=== PATIENT | male | born 1950 | race Caucasian/White ===

== ENCOUNTER 2021-07-30 07:15 | Inpatient (IN) ==
[2021-07-29 15:34] LABS: Bilirubin,Urine Negative (Negative); Blood, Urine Negative (Negative); Glucose,Urine (UA) Negative (Negative); Ketones,Urine Negative (Negative); Mucus,Urine Occasional /LPF (Occasional); Nitrite,Urine Negative (Negative); Protein,Urine Negative; RBC,Urine <1 /HPF (0-4); Urine Appearance CLEAR (Clear); Urine Color Yellow (Yellow); Urine Specific Gravity 1.014 (1.001-1.035); Urine Urobilinogen < 2.0 EU/DL (0.2-1.0)
[~2021-07-30 07:15] MED LIST: ACETAMINOPHEN 500 MG TABLET PO ONE; DIAZEPAM 5 MG TABLET PO ONE; FAMOTIDINE 20 MG TABLET PO ONE; GABAPENTIN 400 MG CAPSULE PO ONE; VANCOMYCIN INJ 1,000 MG in SODIUM CHLORIDE 0.9% 250 ML IV ONE; ceFAZolin 2,000 MG/50 ML DUPLEX IV ONE
[2021-07-30] MEDS ORDERED: LACTATED RINGERS 1,000 ML IV SCH (09:00)
[2021-07-30] MEDS ORDERED: BACITRACIN OINT 0.9 GM PACK TOP ONE (09:15)
[2021-07-30] MEDS ORDERED: propofoL 200 MG/20 ML VIAL IV ONE (09:20)
[2021-07-30] MEDS ORDERED: LIDOCAINE 2% 5 ML VIAL ONE ×2 (09:20→11:55)
[2021-07-30] MEDS ORDERED: fentaNYL 250 MCG/5 ML VIAL ONE ×2 (09:21→11:33)
[2021-07-30] MEDS ORDERED: MIDAZOLAM 2 MG/2 ML VIAL ONE (09:21)
[2021-07-30] MEDS ORDERED: ROCURONIUM 50 MG/5 ML VIAL IV ONE (09:21)
[2021-07-30] MEDS ORDERED: SUCCINYLCHOLINE 200 MG/10 ML VIAL ONE (09:21)
[2021-07-30] MEDS ORDERED: HYDROCORTISONE 100 MG VIAL ONE (09:22)
[2021-07-30] MEDS ORDERED: DEXAMETHASONE 4 MG/1 ML VIAL ONE (09:22)
[2021-07-30] MEDS ORDERED: ONDANSETRON 4 MG/2 ML VIAL ONE (09:22)
[2021-07-30] MEDS ORDERED: PHENYLEPHRINE 10 MG/1 ML VIAL IV ONE (09:26)
[2021-07-30] MEDS ORDERED: TRANEXAMIC ACID 1,000 MG/10 ML VIAL ONE ×2 (10:16→12:35)
[2021-07-30] MEDS ORDERED: GLYCOPYRROLATE 0.4 MG/2 ML VIAL ONE ×2 (10:16→12:43)
[2021-07-30] MEDS ORDERED: ePHEDrine 50 MG/ML VIAL ONE (10:51)
[2021-07-30] MEDS ORDERED: NEOSTIGMINE 10 MG/10 ML VIAL ONE (12:43)
[2021-07-30 13:03] LABS: Bacteria,Urine Occasional /HPF (Few); Bilirubin,Urine Negative (Negative); Blood, Urine Negative (Negative); Glucose,Urine (UA) Negative (Negative); Hyaline Casts,Urine 1 /LPF (0-3); Ketones,Urine Negative (Negative); Mucus,Urine Occasional /LPF (Occasional); Nitrite,Urine Negative (Negative); Protein,Urine Negative; RBC,Urine 1 /HPF (0-4); Squamous Epithelial Cell,Urine Occasional /HPF (0-10); Urine Appearance CLEAR (Clear); Urine Color Yellow (Yellow); Urine Urobilinogen < 2.0 EU/DL (0.2-1.0)
[2021-07-30] MEDS ORDERED: MORPHINE 2 MG/1 ML SYRINGE IV PRN ×2 (13:09)
[2021-07-30] MEDS ORDERED: ONDANSETRON 4 MG/2 ML VIAL IV PRN ×2 (13:09→13:43)
[2021-07-30] MEDS ORDERED: ZALEPLON 5 MG CAPSULE PO PRN (13:09)
[2021-07-30] MEDS ORDERED: MAGNESIUM HYDROXIDE SUSP 30 ML UDCUP PO PRN (13:09)
[2021-07-30] MEDS ORDERED: diphenhydrAMINE CAP 25 MG CAPSULE PO PRN (13:09)
[2021-07-30] MEDS ORDERED: ESMOLOL 100 MG/10 ML VIAL IV ONE (13:24)
[2021-07-30] MEDS: HYDROmorphone 2 MG/1 ML VIAL IV PRN ×2 (13:50→14:00)
[2021-07-30] MEDS: GABAPENTIN 300 MG CAPSULE PO SCH ×2 (14:56→22:07)
[2021-07-30] MEDS: KETOROLAC 15 MG/1 ML VIAL IV SCH ×2 (14:57→18:40)
[2021-07-30] MEDS: ceFAZolin 2,000 MG/50 ML DUPLEX IV SCH (17:25)
[2021-07-30] MEDS: DOCUSATE SODIUM 100 MG CAPSULE PO SCH (22:07)
[2021-07-31] MEDS: KETOROLAC 15 MG/1 ML VIAL IV SCH ×2 (01:53→07:23)
[2021-07-31] MEDS: ceFAZolin 2,000 MG/50 ML DUPLEX IV SCH ×3 (01:54→17:45)
[2021-07-31 05:53] LABS: Basophils % 0.1 % (0.0-0.8); Hematocrit 30.7 VOL% (42.0-52.0); Hemoglobin 10.3 GM/DL (14.0-18.0); Immature Granulocytes % 0.7 %; Immature Granulocytes Absolute 0.07 #; Lymphocytes # 1.2 10*3/uL (1.4-4.0); Mean Corpuscular HGB Conc 33.6 GM/DL (32-36); Mean Platelet Volume 9.7 FL (9.6-12.0); Monocytes % 6.6 % (1.7-12.7); Neutrophils % 80.6 % (38.7-73.9); Platelet Count 171 T/CUMM (130-400); Red Blood Count 3.57 MC/CUMM (3.8-5.5); White Blood Count 9.9 T/CUMM (4-12)
[2021-07-31 07:08] LABS: Calcium 8.3 MG/DL (8.5-10.1); Osmolality,Calculated 270.4 MOS/KG (273-304); Potassium 4.3 MMOL/L (3.5-5.1)
[2021-07-31] MEDS: APIXABAN 2.5 MG TABLET PO SCH ×2 (09:25→20:18)
[2021-07-31] MEDS: GABAPENTIN 300 MG CAPSULE PO SCH ×3 (09:25→20:18)
[2021-07-31] MEDS: DOCUSATE SODIUM 100 MG CAPSULE PO SCH ×2 (09:25→20:19)
[2021-07-31] MEDS: VALSARTAN 160 MG TABLET PO SCH (09:25)
[2021-07-31] MEDS: hydroCHLOROthiazide 12.5 MG CAPSULE PO SCH (09:25)
[2021-08-01] MEDS: ceFAZolin 2,000 MG/50 ML DUPLEX IV SCH ×2 (01:32→10:10)
[2021-08-01 05:16] LABS: Basophils % 0.1 % (0.0-0.8); Eosinophils % 0.4 % (0.00-10.9); Hematocrit 35.3 VOL% (42.0-52.0); Hemoglobin 11.8 GM/DL (14.0-18.0); Immature Granulocytes % 0.7 %; Immature Granulocytes Absolute 0.07 #; Lymphocytes # 2.6 10*3/uL (1.4-4.0); Lymphocytes % 25.4 % (21.2-54.2); Mean Corpuscular HGB Conc 33.4 GM/DL (32-36); Mean Corpuscular Volume 86.3 FL (87-102); Mean Platelet Volume 9.6 FL (9.6-12.0); Monocytes % 7.2 % (1.7-12.7); Neutrophils % 66.2 % (38.7-73.9); Platelet Count 219 T/CUMM (130-400); Red Blood Count 4.09 MC/CUMM (3.8-5.5); Red Cell Distribution Width 14.6 % (9.3-17.3); White Blood Count 10.3 T/CUMM (4-12)
[2021-08-01] MEDS: hydroCHLOROthiazide 12.5 MG CAPSULE PO SCH (10:10)
[2021-08-01] MEDS: VALSARTAN 160 MG TABLET PO SCH (10:11)
[2021-08-01] MEDS: GABAPENTIN 300 MG CAPSULE PO SCH ×3 (10:11→20:42)
[2021-08-01] MEDS: DOCUSATE SODIUM 100 MG CAPSULE PO SCH ×2 (10:11→20:41)
[2021-08-01] MEDS: APIXABAN 2.5 MG TABLET PO SCH ×2 (10:11→20:42)
[2021-08-01] MEDS: DEXAMETHASONE 4 MG TABLET PO SCH (10:19)
[2021-08-01] MEDS ORDERED: CELECOXIB 200 MG CAPSULE PO PRN (10:19)
[2021-08-02 05:04] LABS: Basophils % 0.1 % (0.0-0.8); Hematocrit 37.4 VOL% (42.0-52.0); Hemoglobin 12.5 GM/DL (14.0-18.0); Immature Granulocytes % 1.5 %; Immature Granulocytes Absolute 0.16 #; Lymphocytes # 1.1 10*3/uL (1.4-4.0); Lymphocytes % 10.3 % (21.2-54.2); Mean Corpuscular HGB Conc 33.4 GM/DL (32-36); Mean Corpuscular Volume 86.4 FL (87-102); Mean Platelet Volume 9.5 FL (9.6-12.0); Monocytes % 6.5 % (1.7-12.7); Neutrophils % 81.6 % (38.7-73.9); Platelet Count 213 T/CUMM (130-400); Red Blood Count 4.33 MC/CUMM (3.8-5.5); Red Cell Distribution Width 14.3 % (9.3-17.3); White Blood Count 10.7 T/CUMM (4-12)
[2021-08-02] MEDS: DOCUSATE SODIUM 100 MG CAPSULE PO SCH (08:31)
[2021-08-02] MEDS: GABAPENTIN 300 MG CAPSULE PO SCH (08:31)
[2021-08-02] MEDS: APIXABAN 2.5 MG TABLET PO SCH (08:31)
[2021-08-02] MEDS: hydroCHLOROthiazide 12.5 MG CAPSULE PO SCH (08:32)
[2021-08-02] MEDS: DEXAMETHASONE 4 MG TABLET PO SCH (08:32)
[2021-08-02] MEDS: VALSARTAN 160 MG TABLET PO SCH (08:36)
[2021-08-02 12:12] VITALS: BP 122/82
== END 2021-08-02 14:00 | disposition home health service (06) | DRG 522 ==
LOC: N.SDSINP 07:15 → N.OR 07:15 → N.SDSINP 07:17 → EDSTATUS 13:15 → N.3E 14:27
PROVIDERS: ADMIT Orthopaedic Surgery; ATTEND Orthopaedic Surgery

== ENCOUNTER 2021-12-17 11:54 | Inpatient (IN) ==
[2021-12-17] MEDS ORDERED: GLUCAGON 1 MG VIAL IM PRN (14:49)
[2021-12-17] MEDS ORDERED: ACETAMINOPHEN 325 MG TABLET PO PRN (14:49)
[2021-12-17] MEDS ORDERED: DEXTROSE 10% 250 ML BAG IV PRN (14:49)
[2021-12-17] MEDS ORDERED: ONDANSETRON 4 MG/2 ML VIAL IV PRN (14:49)
[2021-12-17 16:25] LABS: Eosinophils % 0.8 % (0.00-10.9); Hematocrit 37.5 VOL% (42.0-52.0); Hemoglobin 12.1 GM/DL (14.0-18.0); Immature Granulocytes Absolute 0.05 #; Lymphocytes # 0.4 10*3/uL (1.4-4.0); Lymphocytes % 8.7 % (21.2-54.2); Mean Corpuscular HGB Conc 32.3 GM/DL (32-36); Mean Corpuscular Volume 81.3 FL (87-102); Mean Platelet Volume 11.2 FL (9.6-12.0); Monocytes % 7.7 % (1.7-12.7); Neutrophils % 81.8 % (38.7-73.9); Platelet Count 149 T/CUMM (130-400); Red Blood Count 4.61 MC/CUMM (3.8-5.5); Red Cell Distribution Width 15.7 % (9.3-17.3); White Blood Count 4.8 T/CUMM (4-12)
[2021-12-17 16:44] LABS: Albumin 2.3 G/DL (3.4-5.0); Bilirubin,Total 0.7 MG/DL (0.20-1.00); Calcium 7.1 MG/DL (8.5-10.1); Osmolality,Calculated 271.8 MOS/KG (273-304); Total Protein 5.5 G/DL (6.4-8.2)
[2021-12-17 16:59] LABS: Potassium 2.3 MMOL/L (3.5-5.1)
[2021-12-17] MEDS: POTASSIUM CHLORIDE 20 MEQ TABLET PO PRN ×3 (17:07→22:06)
[2021-12-17] MEDS: LACTATED RINGERS 1,000 ML IV SCH (17:08)
[2021-12-17] MEDS: POTASSIUM CHLORIDE RIDER 10 MEQ/100 ML PREMIX IV PRN (18:13)
[2021-12-17] MEDS ORDERED: ENOXAPARIN 40 MG/0.4 ML SYRINGE SUBCUT SCH (21:00)
[2021-12-18] MEDS: LACTATED RINGERS 1,000 ML IV SCH ×3 (02:00→19:04)
[2021-12-18 05:05] LABS: Eosinophils # 0.1 10*3/uL (0.0-0.87); Eosinophils % 1.1 % (0.00-10.9); Hemoglobin 12.6 GM/DL (14.0-18.0); Immature Granulocytes % 1.1 %; Immature Granulocytes Absolute 0.05 #; Lymphocytes # 0.4 10*3/uL (1.4-4.0); Lymphocytes % 9.1 % (21.2-54.2); Mean Corpuscular HGB Conc 32.3 GM/DL (32-36); Mean Corpuscular Volume 80.6 FL (87-102); Mean Platelet Volume 11.4 FL (9.6-12.0); Monocytes % 10.2 % (1.7-12.7); Neutrophils % 78.5 % (38.7-73.9); Platelet Count 154 T/CUMM (130-400); Red Blood Count 4.84 MC/CUMM (3.8-5.5); Red Cell Distribution Width 15.6 % (9.3-17.3); White Blood Count 4.5 T/CUMM (4-12)
[2021-12-18 05:44] LABS: Albumin 2.1 G/DL (3.4-5.0); Bilirubin,Total 0.8 MG/DL (0.20-1.00); Calcium 7.5 MG/DL (8.5-10.1); Osmolality,Calculated 271.8 MOS/KG (273-304); Potassium 2.7 MMOL/L (3.5-5.1); Total Protein 5.5 G/DL (6.4-8.2)
[2021-12-18] MEDS: POTASSIUM CHLORIDE 20 MEQ TABLET PO PRN ×2 (05:58)
[2021-12-18] MEDS: POTASSIUM CHLORIDE RIDER 10 MEQ/100 ML PREMIX IV PRN ×3 (06:15→23:09)
[2021-12-18] MEDS ORDERED: MAGNESIUM SULF RIDER 2 GM/50 ML PREMIX IV ONE (08:55)
[2021-12-18] MEDS ORDERED: POTASSIUM CHLORIDE 20 MEQ TABLET PO ONE (09:00)
[2021-12-18] MEDS ORDERED: POTASSIUM CHLORIDE 20 MEQ TABLET PO SCH (09:00)
[2021-12-18] MEDS: CHOLESTYRAMINE 4 GM PACK PO SCH ×2 (10:06→21:31)
[2021-12-18] MEDS: PANTOPRAZOLE 40 MG TABLET PO SCH (10:06)
[2021-12-18] MEDS: busPIRone 5 MG TABLET PO SCH ×2 (10:10→20:32)
[2021-12-18] MEDS: POTASSIUM CHLORIDE 20 MEQ TABLET PO SCH (20:32)
[2021-12-18] MEDS: APIXABAN 2.5 MG TABLET PO SCH (20:32)
[2021-12-19] MEDS: LACTATED RINGERS 1,000 ML IV SCH ×3 (02:55→06:19)
[2021-12-19] MEDS: POTASSIUM CHLORIDE RIDER 10 MEQ/100 ML PREMIX IV PRN (02:55)
[2021-12-19 05:15] LABS: Basophils % 0.2 % (0.0-0.8); Eosinophils # 0.1 10*3/uL (0.0-0.87); Eosinophils % 1.4 % (0.00-10.9); Hematocrit 36.4 VOL% (42.0-52.0); Hemoglobin 11.7 GM/DL (14.0-18.0); Immature Granulocytes Absolute 0.05 #; Lymphocytes # 0.4 10*3/uL (1.4-4.0); Lymphocytes % 7.2 % (21.2-54.2); Mean Corpuscular HGB Conc 32.1 GM/DL (32-36); Mean Corpuscular Volume 81.1 FL (87-102); Mean Platelet Volume 10.3 FL (9.6-12.0); Monocytes % 9.7 % (1.7-12.7); Neutrophils % 80.5 % (38.7-73.9); Platelet Count 176 T/CUMM (130-400); Red Blood Count 4.49 MC/CUMM (3.8-5.5); Red Cell Distribution Width 15.8 % (9.3-17.3); White Blood Count 4.8 T/CUMM (4-12)
[2021-12-19 05:43] LABS: Calcium 7.5 MG/DL (8.5-10.1); Potassium 3.6 MMOL/L (3.5-5.1)
[2021-12-19] MEDS: busPIRone 5 MG TABLET PO SCH ×2 (09:30→21:53)
[2021-12-19] MEDS: CHOLESTYRAMINE 4 GM PACK PO SCH ×2 (09:30→21:53)
[2021-12-19] MEDS: CHOLECALCIFEROL 1,000 UNIT TABLET PO SCH (09:30)
[2021-12-19] MEDS: APIXABAN 2.5 MG TABLET PO SCH ×2 (09:30→21:53)
[2021-12-19] MEDS: POTASSIUM CHLORIDE 20 MEQ TABLET PO SCH ×2 (09:30→21:53)
[2021-12-19] MEDS: PANTOPRAZOLE 40 MG TABLET PO SCH (09:30)
[2021-12-20 07:09] LABS: Basophils % 0.2 % (0.0-0.8); Eosinophils % 0.8 % (0.00-10.9); Hematocrit 37.1 VOL% (42.0-52.0); Hemoglobin 11.9 GM/DL (14.0-18.0); Immature Granulocytes % 0.6 %; Immature Granulocytes Absolute 0.03 #; Lymphocytes # 0.6 10*3/uL (1.4-4.0); Lymphocytes % 12.1 % (21.2-54.2); Mean Corpuscular HGB Conc 32.1 GM/DL (32-36); Mean Corpuscular Volume 81.5 FL (87-102); Mean Platelet Volume 10.1 FL (9.6-12.0); Monocytes % 11.3 % (1.7-12.7); Platelet Count 200 T/CUMM (130-400); Red Blood Count 4.55 MC/CUMM (3.8-5.5); White Blood Count 5.1 T/CUMM (4-12)
[2021-12-20 07:41] LABS: Calcium 7.4 MG/DL (8.5-10.1); Osmolality,Calculated 276.4 MOS/KG (273-304); Potassium 3.3 MMOL/L (3.5-5.1)
[2021-12-20] MEDS: CHOLESTYRAMINE 4 GM PACK PO SCH ×2 (08:49→09:39)
[2021-12-20] MEDS: APIXABAN 2.5 MG TABLET PO SCH (08:50)
[2021-12-20] MEDS: PANTOPRAZOLE 40 MG TABLET PO SCH (08:50)
[2021-12-20] MEDS: busPIRone 5 MG TABLET PO SCH (08:50)
[2021-12-20] MEDS: CHOLECALCIFEROL 1,000 UNIT TABLET PO SCH (08:50)
[2021-12-20] MEDS: POTASSIUM CHLORIDE 20 MEQ TABLET PO SCH (08:54)
[2021-12-20] MEDS ORDERED: DIPHENOXYLATE/ATROPINE 2.5-0.025 MG TABLET PO PRN (09:52)
[2021-12-20 11:56] VITALS: BP 126/74
== END 2021-12-20 12:52 | disposition home health service (06) | DRG 394 ==
LOC: SUATTDRO 13:18 → N.TELES 13:18
PROVIDERS: ADMIT Internal Medicine; ATTEND Hospitalist